=== PATIENT | female | born 1940 | race Caucasian/White ===

== ENCOUNTER 2020-05-20 07:24 | Emergency (ER) | payer OTHER, MEDICARE ==
[~2020-05-20] VITALS: Ht 152.4 cm; Wt 63.5 kg
[2020-05-20] MEDS ORDERED: HYDR1TAB94 PO (10:05)
[2020-05-20] MEDS ORDERED: AZIT500 PO (10:05)
== END 2020-05-20 10:21 | disposition home or self-care (01) ==
LOC: ER 07:24
DX: S22.32XA Fracture of one rib, left side, initial encounter for closed fracture (principal); I50.9 Heart failure, unspecified; Z88.2 Allergy status to sulfonamides; Z88.0 Allergy status to penicillin; W01.198A Fall on same level from slipping, tripping and stumbling with subsequent striking against other object, initial encounter; Y92.002 Bathroom of unspecified non-institutional (private) residence as the place of occurrence of the external cause
CPT/HCPCS: 71046; 99283-25; A9270